=== PATIENT | male | born 1950 | race Caucasian/White ===

== ENCOUNTER 2022-02-06 07:35 | Day surgery (SDC) | payer OTHER ==
[2022-02-06] MEDS ORDERED: Ringers Lactate 1,000 ML IV ONE (08:20)
[2022-02-06] MEDS ORDERED: propofoL 200 MG/20 ML VIAL IV ONE ×2 (09:06)
[2022-02-06] MEDS ORDERED: LIDOCAINE 1% MPF 5 ML VIAL ONE (09:06)
[2022-02-06 10:22] VITALS: TEMP 98.2
[2022-02-06 10:25] VITALS: BP 116/65; O2SAT 97
--- NOTE | 2022-02-06 10:44 | OP ---
Surgeon: Doni Trevizo MD Procedure Performed: Colonoscopy. Indications For Procedure: History of polyps, high-risk colon cancer screening. Plan For Anesthesia: Monitored anesthesia care. Complexity: Average. Technique: After obtaining informed consent from the patient explaining risks and complications, whi ch include, but are not limited to bleeding, infection, perforation, and anesthesia complication, pat ient was placed in a left lateral position and sedation was given. Digital rectal exam was performed and scope was inserted into the rectum and carefully guided up until the cecum. The cecum was ident ified by the ileocecal valve and appendiceal orifice. The quality of prep was fair. Scope withdrawa l time was 14 minutes. Findings: In this cecum, a diminutive polyp was seen, removed with cold biopsy polypectomy. In the ascending colon, 2 sessile polyps ranging in 5 mm were seen, removed with hot biopsy polyp ectomy. In the splenic flexure, a 5 mm polyp was seen. This was removed by hot biopsy polypectomy i n the sigmoid colon. In the sigmoid colon, a 1.5 cm pedunculated polyp was seen. This was removed b y hot snare polypectomy. Multiple diverticula seen in the descending and sigmoid. Retroflexion reve aled grade 1 internal hemorrhoids. Complications: None. Tolerance To Anesthesia: Excellent. Estimated Blood Loss: Minimal. Postoperative Diagnoses: Diverticulosis, colon polyps. Plan: 1.Await pathology results. 2.Follow up in the GI clinic. 3.Repeat colonoscopy in 3 years due to multiple polyps. US/MODL Voice ID: [id number] Report ID: [id number]
== END 2022-02-06 10:20 | disposition home or self-care (01) ==
LOC: OR 07:35
PROVIDERS: ATTEND Internal Medicine Gastroenterology
PROC: 0DBL8ZX Excision of Transverse Colon, Via Natural or Artificial Opening Endoscopic, Diagnostic (ICD-10-PCS; 2022-02-06)
PROC: 0DBN8ZX Excision of Sigmoid Colon, Via Natural or Artificial Opening Endoscopic, Diagnostic (ICD-10-PCS; 2022-02-06)
PROC: 0DBH8ZX Excision of Cecum, Via Natural or Artificial Opening Endoscopic, Diagnostic (ICD-10-PCS; 2022-02-06)
PROC: 0DBK8ZX Excision of Ascending Colon, Via Natural or Artificial Opening Endoscopic, Diagnostic (ICD-10-PCS; principal; 2022-02-06 09:00)
DX: K59.00 Constipation, unspecified (principal); Z86.010 Personal history of colon polyps; K30 Functional dyspepsia; Z88.0 Allergy status to penicillin; I10 Essential (primary) hypertension; J44.9 Chronic obstructive pulmonary disease, unspecified; Z80.0 Family history of malignant neoplasm of digestive organs; D12.2 Benign neoplasm of ascending colon; D12.0 Benign neoplasm of cecum; D12.5 Benign neoplasm of sigmoid colon; D12.3 Benign neoplasm of transverse colon; K57.30 Diverticulosis of large intestine without perforation or abscess without bleeding
CPT/HCPCS: 45380; 88305; 45384; J2704 ×2; J7120; J2001

== ENCOUNTER 2022-07-26 08:17 | Day surgery (SDC) | payer OTHER, SELFPAY ==
[2022-07-26] MEDS ORDERED: Ringers Lactate 1,000 ML IV ONE (08:30)
[2022-07-26] MEDS ORDERED: propofoL 200 MG/20 ML VIAL IV ONE ×2 (10:38→10:39)
[2022-07-26 11:31] VITALS: BP 107/62; TEMP 97.4; O2SAT 96
== END 2022-07-26 11:42 | disposition home or self-care (01) ==
LOC: OR 08:17
PROVIDERS: ATTEND Internal Medicine Gastroenterology
PROC: 0DB88ZX Excision of Small Intestine, Via Natural or Artificial Opening Endoscopic, Diagnostic (ICD-10-PCS; 2022-07-26)
PROC: 0DB78ZX Excision of Stomach, Pylorus, Via Natural or Artificial Opening Endoscopic, Diagnostic (ICD-10-PCS; 2022-07-26)
PROC: 0DB38ZX Excision of Lower Esophagus, Via Natural or Artificial Opening Endoscopic, Diagnostic (ICD-10-PCS; 2022-07-26)
PROC: 0DB98ZX Excision of Duodenum, Via Natural or Artificial Opening Endoscopic, Diagnostic (ICD-10-PCS; principal; 2022-07-26 10:30)
DX: D50.0 Iron deficiency anemia secondary to blood loss (chronic) (principal); K92.1 Melena; K22.9 Disease of esophagus, unspecified; K44.9 Diaphragmatic hernia without obstruction or gangrene; K29.70 Gastritis, unspecified, without bleeding; K31.7 Polyp of stomach and duodenum
CPT/HCPCS: 88305; 88312; J2704; J7120